=== PATIENT | female | born 1945 | race Caucasian/White ===

== ENCOUNTER → 2020-08-10 15:01 | Outpatient (BNVA) | payer MEDICARE, SELFPAY | PROVIDERS: Referring Provider Physician Assistant Medical; Visit Provider Internal Medicine Critical Care Medicine | DX: J44.9 Chronic obstructive pulmonary disease, unspecified (principal); J96.11 Chronic respiratory failure with hypoxia | CPT/HCPCS: 71046; 80053; 85025 ==